=== PATIENT | female | born 1985 | race Caucasian/White ===

== ENCOUNTER 2017-06-22 13:10 | Emergency (ER) | payer OTHER ==
[~2017-06-22] VITALS: Ht 165.1 cm; Wt 136.1 kg
[~2017-06-22 13:10] MED LIST: AMOXICILLIN500 M2 PO; AMOXICILLIN500 MG PO; ANAPROX DS550 MG PO; ASPI-COR81 M1 PO; ATARAX25 MG PO; BACTRIM DS 8001 TA1 PO; CLARITIN10 MG PO; ELIMITE 5%60 GM PO; ERYTHROMYCIN OPH1 GM OPH; FIORICET 325 MG1 TAB PO; FLEXERIL10 MG PO; IBU800 M1 PO; MACROBID100 M1 PO; MOTRIN800 MG PO; NORCO 5-325 TA1 EACH PO; PHENERGAN12.5 M1 PO; PRENATAL1 TA1 PO; SEPTRA DS 800 M1 TAB PO; SEROQUEL100 MG PO; TOPAMAX50 MG PO; TOPIRAMATE100 M2 PO; TRAMADOL HCL50 MG PO; VALIUM10 MG PO; VICODIN 5/500 505 MG PO; ZANTAC 150150 MG PO; ZOFRAN ODT4 MG SL; ZOFRAN8 MG PO
[2017-06-22 13:37] LABS: BASO % 0.3 % (0.0-1.0); EOS # 0.3 10*3/uL (0.0-0.4); HEMOGLOBIN 12.4 g/dl (12.0-16.0); LYMPH # 2.8 10*3/uL (1.3-4.4); LYMPH % 42.5 % (27.0-41.0); MEAN CELL VOLUME 80.9 fl (81.0-99.0); MEAN CORPUSCULAR HGB 26.4 pg (27.0-31.0); MEAN CORPUSCULAR HGB CONC 32.6 g/dl (33.0-37.0); MEAN PLATELET VOLUME 9.4 fl (9.6-12.3); MONO # 0.4 10*3/uL (0.1-1.0); MONO % 5.3 % (3.0-9.0); NEUT # 3.1 10*3/uL (2.3-7.9); NEUT % 47.7 % (47.0-73.0); PLATELET COUNT AUTOMATED 268 10*3/uL (130-400); RED CELL DISTRI WIDTH 15.2 % (0-14.5); WHITE BLOOD COUNT 6.6 10*3/uL (4.8-10.8)
[2017-06-22 13:49] LABS: PROTHROMBIN TIME 10.2 SECONDS (9.0-12.4)
[2017-06-22 13:54] LABS: ALBUMIN 3.7 gm/dl (3.1-4.5); ALKALINE PHOSPHATASE 61 U/L (45-117); BILIRUBIN, TOTAL 0.5 mg/dl (0.2-1.0); BUN 13 mg/dl (7-24); CARBON DIOXIDE 22 mmol/L (21-32); CHLORIDE 105 mmol/L (98-107); EST GLOM FILT AFRICAN AMERICAN > 60 ml/min; GLUCOSE 99 mg/dL (65-99); MAGNESIUM 1.8 mg/dL (1.5-2.1); POTASSIUM 3.7 mmol/L (3.5-5.1); SGOT/AST 17 IU/L (3-35); SGPT/ALT 26 U/L (12-78); SODIUM 137 mmol/L (136-145); TOTAL PROTEIN 7.9 gm/dL (6.4-8.2)
[2017-06-22 13:58] LABS: TROPONIN I < 0.015 ng/ml (<0.045)
[2017-06-22 14:31] VITALS: BP 118/60
== END 2017-06-22 16:44 | disposition home or self-care (01) ==
LOC: ED 13:10
PROVIDERS: Emergency Medicine
DX: F41.9 Anxiety disorder, unspecified (principal); R07.9 Chest pain, unspecified; R42 Dizziness and giddiness; R11.0 Nausea; F17.200 Nicotine dependence, unspecified, uncomplicated

== ENCOUNTER 2017-10-08 01:15 | Emergency (ER) | payer OTHER ==
[2017-10-08 01:21] VITALS: BP 157/98
[2017-10-08] MEDS ORDERED: OMNICEF300 MG PO (04:40)
[2017-10-08] MEDS ORDERED: NORCO 5-325 TA1 EACH PO (04:40)
[2017-10-08] MEDS ORDERED: FLONASE ALLERG9.9 ML NAS (04:41)
[2017-10-08] MEDS ORDERED: KETOROLAC10 MG PO (04:56)
== END 2017-10-08 05:21 | disposition home or self-care (01) ==
LOC: ED 01:15
DX: J32.9 Chronic sinusitis, unspecified (principal); F41.9 Anxiety disorder, unspecified

== ENCOUNTER 2018-05-20 15:03 | Emergency (ER) | payer OTHER ==
[~2018-05-20 15:03] MED LIST changes: +FLONASE ALLERG9.9 ML NAS; +KETOROLAC10 MG PO; +OMNICEF300 MG PO
[2018-05-20 15:04] VITALS: BP 156/89
[2018-05-20 15:32] LABS: BILIRUBIN NEGATIVE (NEGATIVE); BLOOD NEGATIVE (NEGATIVE); CLARITY SL CLOUDY (CLEAR); COLOR YELLOW (YELLOW); GLUCOSE NEGATIVE (NEGATIVE); KETONE TRACE (NEGATIVE); LEUKO ESTERASE 2+ (NEGATIVE); NITRITE NEGATIVE (NEGATIVE); SPECIFIC GRAVITY >= 1.030 (1.005-1.030); UROBILINOGEN 0.2 E.U./dl (0.2-1.0)
[2018-05-20 15:45] LABS: BACTERIA 1+; EPITHELIAL CELLS TNTC; MUCOUS TRACE; WBC TNTC wbc/hpf (0-5)
[2018-05-20] MEDS ORDERED: ZYRTEC10 MG PO (15:51)
[2018-05-20] MEDS ORDERED: OMNICEF300 MG PO (15:51)
== END 2018-05-20 16:00 | disposition home or self-care (01) ==
LOC: ED 15:03
PROVIDERS: Nurse Practitioner Family
DX: N39.0 Urinary tract infection, site not specified (principal); J01.90 Acute sinusitis, unspecified

== ENCOUNTER 2020-07-19 09:05 | Emergency (ER) | payer BC ==
[~2020-07-19] VITALS: Ht 172.7 cm; Wt 142.4 kg
[~2020-07-19 09:05] MED LIST changes: +ZYRTEC10 MG PO
[2020-07-19 09:10] VITALS: BP 133/85
[2020-07-19 09:57] LABS: BASO % 0.2 % (0.0-1.0); EOS # 0.2 10*3/uL (0.0-0.4); EOS % 1.9 % (1.0-4.0); HEMATOCRIT 42.7 % (37.0-47.0); LYMPH % 17.2 % (27.0-41.0); MEAN CELL VOLUME 88.2 fl (81.0-99.0); MEAN CORPUSCULAR HGB 28.9 pg (27.0-31.0); MEAN CORPUSCULAR HGB CONC 32.8 g/dl (33.0-37.0); MEAN PLATELET VOLUME 9.9 fl (9.6-12.3); MONO # 0.5 10*3/uL (0.1-1.0); MONO % 4.1 % (3.0-9.0); NEUT # 8.6 10*3/uL (2.3-7.9); NEUT % 76.4 % (47.0-73.0); PLATELET COUNT AUTOMATED 302 10*3/uL (130-400); RED BLOOD COUNT 4.84 10*6/uL (4.10-5.10); RED CELL DISTRI WIDTH 12.2 % (0-14.5); WHITE BLOOD COUNT 11.3 10*3/uL (4.8-10.8)
[2020-07-19 10:08] LABS: ACT PARTIAL THROMBO TIME 27.4 SECONDS (20.0-32.1)
[2020-07-19 10:13] LABS: ALBUMIN 3.6 gm/dl (3.1-4.5); ALKALINE PHOSPHATASE 59 U/L (45-117); BUN 8 mg/dl (7-24); CHLORIDE 110 mmol/L (98-107); CREATININE 0.83 mg/dL (0.55-1.02); LIPASE 132 U/L (73-393); POTASSIUM 3.6 mmol/L (3.5-5.1); SGOT/AST 11 IU/L (3-35); SGPT/ALT 26 U/L (12-78); SODIUM 139 mmol/L (136-145); TOTAL PROTEIN 7.5 gm/dL (6.4-8.2)
[2020-07-19 10:15] LABS: TROPONIN I < 0.015 ng/ml (<0.045)
== END 2020-07-19 10:52 | disposition left against medical advice (07) ==
LOC: ED 09:05
PROVIDERS: Physician Assistant
DX: G45.9 Transient cerebral ischemic attack, unspecified (principal); Z79.899 Other long term (current) drug therapy

== ENCOUNTER 2020-10-30 10:41 | Emergency (ER) | payer BC ==
[~2020-10-30] VITALS: Ht 172.7 cm; Wt 156.5 kg
[2020-10-30 10:51] VITALS: BP 146/98
== END 2020-10-30 12:55 | disposition home or self-care (01) ==
LOC: ED 10:41
DX: R55 Syncope and collapse (principal); F41.9 Anxiety disorder, unspecified; R20.2 Paresthesia of skin; M25.512 Pain in left shoulder; Z79.899 Other long term (current) drug therapy

== ENCOUNTER 2021-11-07 22:41 | Emergency (ER) | payer BC, OTHER ==
[2021-11-07 23:00] VITALS: BP 155/90
[2021-11-07] MEDS ORDERED: AUGMENTIN 875875 MG PO (23:16)
[2021-11-07] MEDS ORDERED: HYDROCODONE-AC1 EAC1 PO (23:16)
== END 2021-11-07 23:45 | disposition home or self-care (01) ==
LOC: ED 22:41
DX: K08.89 Other specified disorders of teeth and supporting structures (principal)